=== PATIENT | female | born 1965 | race Two or more races ===

== ENCOUNTER 2020-04-04 12:34 | Emergency (ER) | payer SELFPAY ==
[~2020-04-04] VITALS: Ht 162.6 cm; Wt 117.9 kg
[2020-04-04 13:16] LABS: Basophils # (auto) 0.1 10 ^3/uL (0-0.2); Basophils % (auto) 1.8 % (0.0-2.0); Eosinophils # (auto) 0.1 10 ^3/uL (0-0.8); Eosinophils % (auto) 1.7 % (0.0-7.0); Hematocrit 46.4 % (36.0-46.0); Hemoglobin 15.7 g/dL (12.2-16.2); Lymphocytes # (auto) 1.9 10 ^3/uL (0.4-5.4); Lymphocytes % (auto) 27.8 % (10.0-50.0); Mean Corpuscular Hgb Conc. 33.8 g/dL (32.0-36.0); Mean Corpuscular Volume 85.7 fL (80.0-100.0); Monocytes # (auto) 0.9 10 ^3/uL (0-1.3); Monocytes % (auto) 13.4 % (0.0-12.0); Neutrophils # (auto) 3.8 10 ^3/uL (1.6-8.6); Neutrophils % (auto) 55.3 % (37.0-80.0); Nucleated Red Blood Cells % 0.3 %; Platelet Count (auto) 226 10^3/uL (140-450); Red Blood Cells 5.42 10^6/uL (4.0-5.20); Red Cell Distribution Width 13.9 % (11.8-14.3); White Blood Cell 6.8 10^3/uL (4.4-10.8)
[2020-04-04 13:26] VITALS: BP 143/70
[2020-04-04 13:27] LABS: Albumin 3.1 g/dL (3.4-5.0); Anion Gap 11 (5-15); Blood Urea Nitrogen 15 mg/dL (7-18); Calcium 8.8 mg/dL (8.5-10.1); Carbon Dioxide 20 mmol/L (21-32); Chloride 104 mmol/L (98-107); Potassium 3.9 mmol/L (3.5-5.1); Sodium 135 mmol/L (136-145)
[2020-04-04] MEDS ORDERED: ONDANSETRON HCL 4 MG/2 ML VIAL IV ONE (13:30)
[2020-04-04] MEDS ORDERED: MORPHINE SULF INJ 2 MG/ML SYRINGE 1ML IV ONE (13:30)
[2020-04-04 13:32] LABS: Alanine Aminotransferase 32 U/L (13-56); Alkaline Phosphatase 95 U/L (45-117); Aspartate Aminotransferase 27 U/L (15-37); BUN/Creatinine Ratio 12.9; Bilirubin, Total 0.5 mg/dL (0.2-1.0); GFR African American 62 mL/min; GFR Non-African American 51 mL/min; Total Protein 8.2 g/dL (6.4-8.2)
[2020-04-04 13:37] LABS: Glucose 452 mg/dL (74-106)
[2020-04-04] MEDS ORDERED: SODIUM CHLORIDE 0.9% 1,000 ML IV ONE (13:45)
[2020-04-04] MEDS ORDERED: InsuLIN REG 1unit/0.01ml Soln (100units/ml) IV ONE (13:45)
[2020-04-04 14:18] LABS: Urine Bacteria NONE SEEN /hpf (None Seen); Urine Blood Negative /uL (Negative); Urine WBC 1 /hpf (0 - 5)
== END 2020-04-04 16:15 | disposition home or self-care (01) ==
LOC: ER 12:34
DX: T88.1XXA Other complications following immunization, not elsewhere classified, initial encounter (principal); E11.9 Type 2 diabetes mellitus without complications; I10 Essential (primary) hypertension; E78.5 Hyperlipidemia, unspecified; X58.XXXA Exposure to other specified factors, initial encounter; Y93.89 Activity, other specified; Y92.89 Other specified places as the place of occurrence of the external cause; Y99.8 Other external cause status
CPT/HCPCS: 36415; 80053; 81001; 84484; 85025; 93005; 96361; 96374; 96375; 99284; J2270; J2405; J7030

== ENCOUNTER → 2024-05-22 | Outpatient (CLI) | payer MEDICAID ==
[~2024-05-22] VITALS: Ht 157.5 cm; Wt 77.1 kg
[2024-05-22] MEDS: REGADENOSON 0.4 MG/5 ML SYRG IV ONE ×2 (10:27→10:32)
--- NOTE | 2024-05-22 13:34 | DVHSR ---
APPROVED REPORT Exam: Nuclear Stress Test BMI: 0 Stress Test Details HR Max Heart Rate (APMHR): 160.399523 bpm Target HR (85% APMHR): 136.510682 bpm BP ECG Stress ECG Conclusion dilated LV severe LV dysfunciton LVEF 26% apical reversible defect noted GI artifact noted NM EXAM: Myocardial Perfusion REST/STRESS Imaging Protocol: Rest Tc-99m/Stress Tc-99m 1 day Resting Data Rest SPECT myocardial perfusion imaging was performed in supine position 60 minutes following the int ravenous injection of 13 mCi of Tc-99m Sestamibi. Time of rest injection: 0840 Time of rest imagin Administration Route: IV Administration Site: Right Arm Pharmacologic Stress Pharmacologic stress test was performed by injecting Regadenoson 0.4 mg IV push followed by the intra venous injection of 31 mCi of Tc-99m Sestamibi. Time of stress injection: 1034 Time of stress imagin Administration Route: IV Administration Site: Right Arm Gated Stress SPECT was performed 60 minutes after stress injection. The images were gated to evaluate regional wall motion and calculate left ventricular ejection fracti on. Stress only was performed in the Supine position. Nuclear Conclusion Nuclear Findings: positive for ischemia dilated LV severe LV dysfunciton LVEF 26% apical reversible defect noted GI artifact noted
== END | disposition home or self-care (01) ==
LOC: XYW 08:06
PROVIDERS: ATTEND Internal Medicine
DX: Z01.810 Encounter for preprocedural cardiovascular examination (principal); I25.9 Chronic ischemic heart disease, unspecified; I50.20 Unspecified systolic (congestive) heart failure; I51.89 Other ill-defined heart diseases
CPT/HCPCS: 78452; 93017; A9500; J2785

== ENCOUNTER 2024-06-25 06:51 | Day surgery (SDC) | payer MEDICAID ==
[~2024-06-25] VITALS: Ht 157.5 cm; Wt 77.1 kg
[2024-06-25] VITALS (9 sets, daily range): BP systolic 100–116; BP diastolic 57–75; PULSE 79–94; RESP 11–19; TEMP 98; O2SAT 93–96
[~2024-06-25 06:51] MED LIST: AMIT25TA20 PO; BACL10TA PO; EMPA1TAB PO; GABA-1250 PO; INSLANTI SC; PANT40TA2 PO; SACU1TAB PO; SUMA100T15 PO; TERB250T92 PO; TRAM50TA2 PO
[2024-06-25] MEDS: HEPARIN IN NS 1000Units/500mL 1,500 ML ONE (09:07)
[2024-06-25] MEDS: IODIXANOL 320MG/ML 100ML BTL IV ONE ×2 (09:07→10:57)
[2024-06-25] MEDS: LIDOCAINE 2%HCL (LOCAL ANESTH.) INJ 20ML MDV ONE ×2 (09:27→10:48)
[2024-06-25] MEDS: SODIUM CHL 0.9% 0 ML ONE (09:51)
[2024-06-25] MEDS: fentaNYL CITRATE 100 MCG/2 ML VL ONE (09:51)
[2024-06-25] MEDS: MIDAZOLAM HCL 2MG/2ML 2ml VIAL (1mg/ml) ONE (09:51)
[2024-06-25] MEDS: ANGIOMAX 250 MG VIAL IV ONE (09:51)
[2024-06-25] MEDS: SODIUM CHL 0.9% 50 ML ONE (10:48)
--- NOTE | 2024-06-25 12:09 | DVHOP2 ---
Operative Report - 2 Report Details Date: 06/25/24 Preop Diagnosis: Cardiomyopathy. Coronary artery disease. Postop Diagnosis: Cardiomyopathy. Surgeon: Veronica Evans MD Anesthesiologist: Conscious sedation. Anesthesia: Mac, Local Consent: The patient was informed of the risks and benefits of the procedure. These include but are not limited to complications of anesthesia, postoperative infection, incomplete relief of symptoms, recurrence of symptoms, damage to blood vessels, nerves and tendons, deep venous thrombosis, pulmonary embolism and possible need for repeat surgery in the future. Complications: No complications. Estimated Blood Loss: None Findings: Cardiomyopathy Indications for Surgery: CHF Name of Procedure Performed Right and left heart catheterization, bilateral cine-coronary angiography, left ventriculography. Procedure Details Procedure Details: Prior local anesthesia with 2% lidocaine to the right groin and full informed consent obtained with ultrasound and fluoroscopic guidance we placed a six Yoruba sheath into the femoral vein and another into the femoral artery through which six Yoruba Constantine catheters were used to cannulate both right and left coronary ostium and a pigtail catheter was used for ventriculography. The venous sheath a Morenci-Theodore catheter was advanced into the right atrium right marco tricle and pulmonary artery were capillary pressure measurements were obtained. Cardiac outputs were determined by the thermodilution technique in triplicate. O2 saturations were not obtained. Hemodynamics aortic blood pressure is well 153/71 with a mean of 105. Left ventricular pressure end-diastolic pressure was 9. There was no gradient across the aortic valve on pullback. The right ventricular pressure was 27 over five. Right atrial pressure was five. Pulmonary artery pressure was 27 over 15 with a mean of 19. Capillary wedge pressure was nine. Cardiac output by thermodilution technique was 5.17. Coronary anatomy: The RCA is a large vessel it is normal in its proximal mid and distal segments. PDA and posterolateral branches are normal. Left main is large and normal. Left anterior descending is large and normal with two diagonals free of significant disease. The circumflex is large with two marginals free of significant disease. Ventriculography in the JIMENEZ projection shows an EF of 25% with global hypokinesis, Impression: Normal left ventricular end-diastolic pressure at rest. Normal pulmonary artery pressures. Functional capacity. Associated severe nonischemic cardiomyopathy. Coronary arteries. Recommendations: Medical therapy is warranted. Medication adjustments. We will initiate Entresto. Sodium and fluid restriction. If no improvement in 3-6 months consider ICD. Condition Good Disposition Home Date of Service: Jun 25, 2024 Billing Provider: VERONICA EVANS Sr., MD Cardiology Common Codes: 64553-FUZMOGL INP/OBS CARE (High) Cardiology Procedure Codes: 20360-Z/R & L HEART CATH FOR LVG, 65526-CFV & PLCMT OF FLOW DIR CATH VERONICA EVANS Sr., MD Jun 25, 2024 12:09
== END 2024-06-25 15:50 | disposition home or self-care (01) ==
LOC: CATH 06:51
PROVIDERS: ATTEND Internal Medicine
DX: I25.10 Atherosclerotic heart disease of native coronary artery without angina pectoris (principal); I42.8 Other cardiomyopathies; I50.20 Unspecified systolic (congestive) heart failure; I11.0 Hypertensive heart disease with heart failure; E78.5 Hyperlipidemia, unspecified; E11.9 Type 2 diabetes mellitus without complications; Z79.899 Other long term (current) drug therapy; Z98.890 Other specified postprocedural states; Z79.4 Long term (current) use of insulin; Z79.01 Long term (current) use of anticoagulants; Z79.82 Long term (current) use of aspirin
CPT/HCPCS: 93460; C1769; C1894; J1644; J2250; J3010; J7030; Q9967; 99152; 99153